=== PATIENT | male | born 1990 | race Two or more races ===

== ENCOUNTER 2023-02-17 23:32 | Emergency (ER) | payer BC, SELFPAY ==
[2023-02-17 23:35] VITALS: BP 167/70; PULSE 74; RESP 16; TEMP 36.8; O2SAT 97; BMI 26.1
--- NOTE | 2023-02-17 23:47 | ED.LOWEXI1 ---
HPI - Extremity Injury (Lower) General Chief Complaint: Extremity Injury, Lower Stated Complaint: R [facility]KLE [facility] Time Seen by Provider: 02/17/23 23:44 Source: patient Mode of arrival: walk-in Limitations: no limitations History of Present Illness HPI Narrative: twist right ankle at work yesterday walking. Increased pain and swelling today. No weakness or numbness Related Data Home Medications Medication Instructions Recorded Confirmed No Known Home Medications 02/17/23 02/17/23 Allergies Allergy/AdvReac Type Severity Reaction Status Date / Time No Known Drug Allergies Allergy Verified 02/17/23 23:37 Review of Systems ROS Status of ROS 10 or more systems reviewed and unremarkable except as noted in history and below PFSH PFS Social History Smoking status: Current every day smoker Exam Constitutional Vital Signs, click to edit/add: Last Vital Signs Temp 98.3 F 02/17/23 23:35 Pulse 74 02/17/23 23:35 Resp 16 02/17/23 23:35 BP 167/70 H 02/17/23 23:35 Pulse Ox 97 02/17/23 23:35 Common normals: no apparent distress, average body habitus, oriented x3 and no limitations Eye Common normals: EOMs intact bilaterally and conjunctivae normal Respiratory Common normals: normal respiratory effort and no retractions Cardio Common normals: regular rate, regular rhythm, S1 normal heart sound and S2 normal heart sound Extremity Other: mild swelling proximal right foot and right ankle Neuro Common normals: oriented x3, CN's II-XII intact bilaterally, moves all extremities, no focal motor deficits and no sensory deficits noted Psych Appearance: grossly normal Course Vital Signs Vital signs: Vital Signs Temperature 98.3 F 02/17/23 23:35 Pulse Rate 74 02/17/23 23:35 Respiratory Rate 16 02/17/23 23:35 Blood Pressure 167/70 H 02/17/23 23:35 Pulse Oximetry 97 02/17/23 23:35 Temperature 98.3 F 02/17/23 23:35 Pulse Rate 74 02/17/23 23:35 Respiratory Rate 16 02/17/23 23:35 Blood Pressure 167/70 H 02/17/23 23:35 Pulse Oximetry 97 02/17/23 23:35 MDM - Extremity Injury (Lower) MDM Narrative Medical decision making narrative: patient presents after rolling his right ankle at work. Presents because of pain and swelling. xrays neg for fracture. Patient feels he is still able to work his job. He has motrin at home that he can take. He is discharged with an air splint Discharge Plan Discharge Chief Complaint: Extremity Injury, Lower Clinical Impression: Ankle sprain and strain Patient Disposition: Home, Self-Care Prescriptions / Home Meds: No Action No Known Home Medications Instructions: Ankle Sprain (ED) Stand Alone Forms: Portal Instructions Referrals: [facility] [Primary Care Provider] - 1 week
--- NOTE | 2023-02-17 23:47 | PC.NURSE ---
pt presents to ED because patient states he works at [employer] in [facility] and yesterday while walking down the stairs he rolled his right ankle. pt states yesterday he continued to walk and this morning woke up with bruising to outer aspect of right foot as well as swelling to the outside of ankle and on outside of [place]. patient states that he is having pain with extending and flexing ankle and difficult to walk on. no meds taken prior to arrival. pt states that he is filling workmans comp but was told that because he didn't report the incident yesterday when it happened that they aren't sure if he will qualify. pt contacted a supervisor shuttle preparation and was told that he doesn't need any workmans comp testing done for work. ice pack applied.
--- NOTE | 2023-02-17 23:48 | XR_ITS ---
The [address] [address] Patient Name: JUAN DAVID VALENTINE MRN: [id number] date: 1990 Sex: M Assigned Patient Location: ER Current Patient Location: ER Accession/Order Number: [id number] Exam Date: 02/17/2023 23:58 Report Date: 02/18/2023 00:32 At the request of: JENNIFER GALLARDO Procedure: XR foot RT min 3V PROCEDURE: XR ankle RT min 3V, XR foot RT min 3V HISTORY: injury ; pain, rolled right ankle COMPARISON: None. FINDINGS: BONES:No fracture, acute abnormality, or significant arthropathy. SOFT TISSUES:Lateral soft tissue swelling. EFFUSION:None visible. OTHER: Negative. XR/XR foot RT min 3V IMPRESSION: 1. Lateral swelling suggesting soft tissue injury. 2. No acute bone abnormality. Electronically authenticated by: KARYN RENEE Date: 02/18/2023 00:32
--- NOTE | 2023-02-17 23:48 | XR_ITS ---
The [address] [address] Patient Name: JUAN DAVID VALENTINE MRN: [id number] date: 1990 Sex: M Assigned Patient Location: ER Current Patient Location: ER Accession/Order Number: [id number] Exam Date: 02/17/2023 23:58 Report Date: 02/18/2023 00:32 At the request of: JENNIFER GALLARDO Procedure: XR ankle RT min 3V PROCEDURE: XR ankle RT min 3V, XR foot RT min 3V HISTORY: injury ; pain, rolled right ankle COMPARISON: None. FINDINGS: BONES:No fracture, acute abnormality, or significant arthropathy. SOFT TISSUES:Lateral soft tissue swelling. EFFUSION:None visible. OTHER: Negative. XR/XR ankle RT min 3V IMPRESSION: 1. Lateral swelling suggesting soft tissue injury. 2. No acute bone abnormality. Electronically authenticated by: KARYN RENEE Date: 02/18/2023 00:32
[2023-02-18 00:57] VITALS: BP 132/88
== END 2023-02-18 00:58 | disposition home or self-care (01) ==
PROVIDERS: Emergency Provider Internal Medicine
DX: S93.401A Sprain of unspecified ligament of right ankle, initial encounter (principal); S93.601A Unspecified sprain of right foot, initial encounter; X50.1XXA Overexertion from prolonged static or awkward postures, initial encounter
CPT/HCPCS: 73610; 73630; 99284